=== PATIENT | male | born 1995 | race Caucasian/White ===

== ENCOUNTER 2022-09-28 14:55 | Outpatient (CLI) | payer OTHER | END 2022-09-28 14:56 | disposition home or self-care (01) | LOC: RAD 14:55 | PROVIDERS: ATTEND Neurological Surgery | DX: M54.12 Radiculopathy, cervical region (principal); Z98.890 Other specified postprocedural states | CPT/HCPCS: 72040 ==

== ENCOUNTER 2022-11-09 12:16 | Outpatient (CLI) | payer OTHER | END 2022-11-09 12:17 | disposition home or self-care (01) | LOC: RAD 12:16 | PROVIDERS: ATTEND Neurological Surgery | DX: M54.12 Radiculopathy, cervical region (principal) | CPT/HCPCS: 72040 ==